=== PATIENT | male | born 1965 | race Two or more races ===

== ENCOUNTER 2024-09-15 08:46 | Emergency (ER) | payer BC, SELFPAY ==
[2024-09-15 08:50] VITALS: BP 162/101
--- NOTE | 2024-09-15 09:22 | ED.GENMED ---
History of Present Illness
General
Chief Complaint: Flank Pain
Source: patient
Exam Limitations: none
Time Seen by Provider: 09/15/24 09:10
Nursing documentation reviewed up to this point in time: agreed with
History of Present Illness
History of Present Illness:
59-year-old male with a history of high cholesterol, hypertension, on Wegovy for weight loss, history of obstructing left ureteral stone in April requiring stent placement
Presents for left flank pain this morning. Patient says he really did start feeling some symptoms 2 or 3 days ago but they were mild. This morning abruptly his pain got significantly worse in the left flank and he vomited once. He feels
nauseated. He has not had any fever or chills, hematuria or dysuria. Patient is not having any chest pain, shortness of breath, leg numbness or weakness.
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 He had an urgent stent placement for obstructing kidney stone. His creatinine at that time was 1.24.
Afterwards he returned home and a few weeks later had the stent removed as well as an extraction of the kidney stone by local urologist with [facility]. Patient said he has been doing well, he had a stent placed after the kidney stone was
extracted which was then removed several weeks later. He has not had any urology follow-up for several months. He cannot recall exactly what date and time he had this second stent placed and removed. He did not take anything this morning for pain
Past History
Past History
ED Past Medical History: GERD, Hypercholesterolemia and Other (Kidney stone)
ED Past Surgical History: Other (Ureteral stent)
Social History
Tobacco: Non-smoker
Alcohol: None
Drug: None
Living: with family
Employment: Employed
Review of Systems
Review of Systems
Allergies reviewed?: Yes
All Other Systems: Not applicable
Phy Exam
Physical Exam
Physical Exam:
GENERAL: Alert, uncomfortable standing
Neck: supple
CARDIAC: Regular rate and rhythm .
LUNGS: Clear breath sounds bilaterally, no acute respiratory distress, no wheezes/rales/rhonchi
ABDOMEN: Soft, normal bowel sounds, nondistended, no abdominal tenderness, no guarding, no rebound, neg rebolledo's
: normal inspection of region
NEUROLOGICAL: Alert and oriented, no focal neuro deficits
SKIN: Warm and dry, skin intact.
PSYCH: Normal and appropriate interaction.
Course
Orders/Labs/Results
Orders:
Orders
09/15/24 09:16
Electrocardiogram (*1) Stat
Reason for Study: Other
Other Reason for Exam: r/o kidney stone
EKG- Treatment ONCE
0.9% Sodium Chloride 1000 ml [Nss] 1,000 ml IV BOLUS
HYDROmorphone [Dilaudid] 1 mg IV NOW STA
Ondansetron Injectable [Zofran] 4 mg IV NOW STA
09/15/24 09:47
Complete Blood Count/With Diff Urgent
Comprehensive Metabolic Panel Urgent
Lipase Urgent
Urinalysis Reflex To Culture Urgent
Date Specimen was Collected: 09/15/24
Time Specimen was Collected: 09:29
Urine Microscopic Reflex Cult Urgent
09/15/24 10:03
CT Abd/pel Without Iv Or Oral Urgent
Comment:
Reason For Exam: L flank pain, h/o kidney stone
09/15/24 11:59
HYDROmorphone [Dilaudid] 1 mg IV NOW STA
09/15/24 12:01
Ketorolac [Toradol] 15 mg IV NOW STA
09/15/24 14:00
Oxycodone [Roxicodone] 5 mg PO NOW STA
Tamsulosin [Flomax] 0.4 mg PO NOW STA
Abnormal Lab Results
09/15/24
09:47
WBC 12.1 H 10^3/uL
(4.8-10.8)
MPV 10.5 H fL
(7.4-10.4)
Abs Immat Gran (auto) 0.1 H 10^3/uL
(0-0.05)
Absolute Neuts (auto) 9.2 H 10^3/uL
(1.4-6.5)
Neutrophils % 76.1 H %
(42.2-75.2)
Lymphocytes % 17.3 L %
(20.5-51.1)
Glucose 136 H mg/dl
(70-99)
Ur Occult Blood Reflex 4+ A
(Negative)
Urine RBC >100 A /HPF
(0-2)
Urine Bacteria (Reflex) Few A
(Negative)
09/15/24 09:47
09/15/24 09:47
Vital Signs
Initial and Last Documented VS:
Initial Vital Signs
Temp Pulse Resp BP Pulse Ox
36.4 C 82 18 162/101 98
09/15/24 08:50 09/15/24 08:50 09/15/24 08:50 09/15/24 08:50 09/15/24 08:50
Last Documented Vital Signs
Temp Pulse Resp BP Pulse Ox
36.4 C 82 17 151/76 97
09/15/24 08:50 09/15/24 14:00 09/15/24 14:00 09/15/24 14:00 09/15/24 14:00
MDM/Problems Addressed
Differential Diagnosis Includes:
kidney stone, obstructive uropathy
MDM/Problems Addressed:
59 y/o M
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
had stent placed and removed here ([facility]ah[facility])
then had stone extraction sometime this fall with stent and removal
sudden pain today (had some mild pain 2 days ago) L flank, n/v
afebrile, wbc 12, ua blood, neg nirtate, no wbc, cr normal
ct shows prox obstrucing 8 mm L UPJ stone
intiially pain was not controleld but after 2nd round meds, he is much more comfortable
d/w dr. bui energy conservation technician for urology
aware of stone being 8 mm and proximal, ua not concerning for infection and cr normal
pt is concerned about being able to get in with his urologist and asked if i would reach out to them. dr keny shahid's office -
i spoke with dr. [place] energy conservation technician and he agreed with dispo home
oxycodone, tylenol, motrin, zofran, flomax
f/u with them this week
return preacuations given
pt toelrating po and pain controlled on dispo
*Critical Care Note
Total Time (30-74mins, 75-104mins- exclusive of procedures): Not Applicable
ED Attending Note
-
Portions of this chart may have been created with voice recognition software.� Occasional wrong word or��sound alike� substitutions may have occurred due to the inherent limitations of voice recognition software.
Discharge Plan
Departure
Patient Disposition: Home (Routine Discharge)
Date of Disposition: 09/15/24
Time of Disposition: 13:45
Patient with high blood pressure during this ER visit?: Yes
Condition: Fair
Covid-19: Not Applicable
Discharge Problem:
Kidney stone
Instructions: Kidney Stones (DC), How to Strain Your Urine
Prescriptions:
New
oxycodone 5 mg tablet
5 mg PO Q8H PRN (Reason: Pain) Qty: 12 0RF
tamsulosin [Flomax] 0.4 mg capsule
0.4 mg PO DAILY Qty: 10 0RF
docusate sodium [Colace] 100 mg capsule
100 mg PO BID Qty: 20 0RF
ondansetron 4 mg tablet,disintegrating
4 mg PO Q8H PRN (Reason: nausea/vomiting) 2 Days Qty: 6 0RF
No Action
meclizine [Antivert] 25 mg tablet,chewable
25 mg PO Q8HPRN PRN (Reason: nausea or vertigo) Qty: 10 0RF
Referrals:
Tee Hart MD [Non-Admitting Privileges] - Follow up in 2-3 days
Nasreen Slater CRNP [Family Provider] - Follow up in 2-3 days
Activity Restrictions/Additional Instructions:
YOU HAVE A KIDNEY STONE IN YOUR URETER MEASURING 8 MM
PLEASE CALL THE UROLOGIST OFFICE TOMORROW TO ARRANGE FOLLOW UP
I SPOKE WITH DR. ALEGRIA WHO WAS THE DOCTOR WAITER/WAITRESS FIRST CLASS AND HE AGREED WITH THIS PLAN
TAKE TYLENOL 3 TIMES A DAY FOR PAIN
TAKE MOTRIN 600 MG 3 TIMES A DAY FOR PAIN
IF PAIN IS MORE SEVERE TAKE OXYCODONE 5 MG EVERY 4-6 HOURS NEEDED
USE A STOOL SOFTENER TO AVOID CONSTIPATION
DRINK PLENTY OF FLUIDS TO HELP PASS THE STONE
USE FLOMAX ONCE A DAY UNTIL YOU PASS THE STONE
URINATE THROUGH THE STRAINER EACH TIME
RETURN FOR: SEVERE PAIN NOT CONTROLLED BY PAIN MEDICATIONS, FEVER, VOMITING, URINARY DISCOMFORT OR ANY CONCENRS.
Interventions
Interventions:
*Risk Screen - Suicide Last Done: 09/15/24 08:50
*General Assessment Last Done: 09/15/24 08:50
*Neglect/Abuse Screening Last Done: 09/15/24 08:50
*ED COVID-19 Vaccine History Last Done: 09/15/24 08:50
Discharge Date and Time
Print Language: [id number]
[2024-09-15] MEDS: DILAUDID 1 MG IV ×2 (09:47→12:20)
[2024-09-15] MEDS: ZOFRAN 4 MG IV (09:47)
[2024-09-15] MEDS: NSS 1000 IV (09:48)
[2024-09-15 09:57] LABS: % Basophils 0.5 % (0-2); % Eosinophils 1.1 % (0-6); % Immature Granulocytes 0.4 % (0-0.5); % Lymphocytes 17.3 % (20.5-51.1); % Monocytes 4.6 % (1.7-9.3); % Neutrophils 76.1 % (42.2-75.2); Absolute Basophils 0.1 10^3/uL (0-0.2); Absolute Eosinophils 0.1 10^3/uL (0-0.7); Absolute Immature Granulocytes 0.1 10^3/uL (0-0.05); Absolute Lymphocytes 2.1 10^3/uL (1.2-3.4); Absolute Monocytes 0.6 10^3/uL (0.1-0.6); Absolute Neutrophils 9.2 10^3/uL (1.4-6.5); Hemoglobin 14.9 g/dL (13.0-18.0); Mean Corp Hgb Conc. 33.1 g/dL (33.0-37.0); Mean Corpuscular Hgb 27.9 pg (27.0-31.0); Mean Corpuscular Volume 84.1 fL (80.0-94.0); Mean Platelet Volume 10.5 fL (7.4-10.4); Nucleated Red Blood Cells % 0 % (-); Platelet Count 239 10^3/uL (130-400); Red Blood Cell Count 5.35 10^6/uL (4.70-6.10); Red Cell Dist. Width 12.7 % (11.5-14.5); White Blood Cell Count 12.1 10^3/uL (4.8-10.8)
[2024-09-15 10:13] LABS: AST (SGOT) 21 U/L (17-59); Alkaline Phosphatase 83 U/L (38-126); Blood Urea Nitrogen 18 mg/dl (9-20); Carbon Dioxide 23 mmol/L (22-30); Chloride 104 mmol/L (98-107); Lipase 212 U/L (23-300); Potassium 4.3 mmol/L (3.5-5.1); Sodium 140 mmol/L (135-145); Total Bilirubin 0.4 mg/dl (0.2-1.3); Total Protein 7.4 g/dl (6.3-8.2); eGFR > 60.00
[2024-09-15 10:50] LABS: ALT (SGPT) 30 U/L (0-50); Calcium 10.2 mg/dl (8.4-10.2); Glucose 136 mg/dl (70-99)
[2024-09-15 12:00] VITALS: BP 164/79
[2024-09-15 12:16] LABS: Urine Albumin Trace (Neg - Trace); Urine Bilirubin Negative (Negative); Urine Character Clear (Clear); Urine Color Yellow; Urine Glucose Negative (Negative); Urine Ketone Negative (Negative); Urine Leukocyte Negative (Negative); Urine Nitrite Negative (Negative); Urine Occult Blood 4+ (Negative); Urine Urobilinogen Negative (Neg - 1+)
[2024-09-15] MEDS: TORADOL 15 MG IV (12:19)
[2024-09-15 12:24] LABS: Urine Mucus Few
[2024-09-15 12:25] LABS: Urine Red Blood Cell >100 /HPF (0-2)
[2024-09-15 12:26] LABS: Urine Bacteria Few (Negative)
[2024-09-15 14:00] VITALS: BP 151/76
[2024-09-15 14:05] VITALS: BP 135/79
[2024-09-15] MEDS: ROXICODONE 5 MG PO (15:11)
[2024-09-15] MEDS: FLOMAX 0.4 MG PO (15:13)
== END 2024-09-15 14:00 | disposition home or self-care (01) ==
LOC: EMR 08:46
PROVIDERS: Physician Assistant; EMERGENCY PHYSICIAN Emergency Medicine; FAMILY PHYSICIAN Registered Nurse
DX: R10.9 Unspecified abdominal pain (principal); E78.00 Pure hypercholesterolemia, unspecified; I10 Essential (primary) hypertension; K21.9 Gastro-esophageal reflux disease without esophagitis; Z87.442 Personal history of urinary calculi
CPT/HCPCS: 99284; 96374; 96375; 96376; 96361; 74176; 80053; 81003; 81015; 83690; 85025; 93005